=== PATIENT | male | born 1955 | race Caucasian/White ===

== ENCOUNTER 2018-10-23 06:44 | Emergency (ER) | payer SELFPAY ==
--- NOTE | 2018-10-23 07:16 | EDM.PDOC ---
<Frandy Marina - Last Filed: 10/23/18 07:19> ED HPI GENERAL MEDICAL PROBLEM - General Chief Complaint: Abdominal Pain Stated Complaint: abdominal pain Time Seen by Provider: 10/23/18 07:00 Source of Information: Reports: Patient History Limitations: Reports: No Limitations - History of Present Illness INITIAL COMMENTS - FREE TEXT/NARRATIVE: Patient is a 63-year-old gentleman who came into the ER with his complaining of severe left lower quadrant pain patient states that he woke up this morning diaphoretic with significant left lower quadrant pain states that this was about 10 out of 10 patient admits having a bowel movement this morning which was normal and no pain on urination 5 years ago patient had a partial nephrectomy secondary to renal cancer has been doing good. Patient denies fever does admit to left leg pain which she constantly has Onset: Today, Sudden Duration: Hour(s): Location: Reports: Abdomen Quality: Reports: Sharp Severity: Moderate Improves with: Reports: Rest Worsens with: Reports: Movement Associated Symptoms: Reports: Diaphoresis - Related Data Allergies Allergy/AdvReac Type Severity Reaction Status Date / Time morphine Allergy Hypotension Verified 10/23/18 06:47 Home Meds: Home Meds Furosemide [Lasix] 20 mg PO DAILY 10/23/18 [History] Liothyronine [Cytomel] 5 mcg PO DAILY 10/23/18 [History] Lisinopril 20 mg PO DAILY 10/23/18 [History] Rosuvastatin [Crestor] 10 mg PO DAILY 10/23/18 [History] Tamsulosin HCl [Flomax] 0.4 mg PO DAILY #10 capsule 10/23/18 [Rx] Thyroid,Pork [[place] Thyroid] 60 mg PO DAILY 10/23/18 [History] metFORMIN [Glucophage XR] 500 mg PO DAILY 10/23/18 [History] traMADol [Ultram] 50 mg PO Q6H PRN #15 tab 10/23/18 [Rx] Social & Family History - Tobacco Use Smoking Status *Q: Never Smoker Second Hand Smoke Exposure: No - Caffeine Use Caffeine Use: Reports: Soda - Recreational Drug Use Recreational Drug Use: No ED ROS GENERAL - Review of Systems Review Of Systems: See Below Constitutional: Reports: Diaphoresis HEENT: Reports: Rhinitis (Clear), Throat Pain Respiratory: Reports: No Symptoms Cardiovascular: Reports: Chest Pain (States chest pain after work) Endocrine: Reports: No Symptoms GI/Abdominal: Reports: Abdominal Pain : Reports: Flank Pain, Pain Musculoskeletal: Reports: No Symptoms Skin: Reports: No Symptoms Neurological: Reports: No Symptoms Psychiatric: Reports: No Symptoms Hematologic/Lymphatic: Reports: No Symptoms Immunologic: Reports: No Symptoms ED EXAM, GI/ABD - Physical Exam Exam Limited By: No Limitations General Appearance: Alert, WD/WN, Severe Distress, Obese Ears: Normal External Exam, Normal Canal, Hearing Grossly Normal, Normal TMs Nose: Normal Inspection Throat/Mouth: Normal Inspection, Normal Lips, Normal Teeth, Normal Gums, Normal Oropharynx, Normal Voice, No Airway Compromise Head: Atraumatic, Normocephalic Neck: Normal Inspection, Supple, Non-Tender, Full Range of Motion Respiratory/Chest: No Respiratory Distress, Lungs Clear, Normal Breath Sounds, No Accessory Muscle Use, Chest Non-Tender Cardiovascular: Normal Peripheral Pulses, Regular Rate, Rhythm, No Edema, No Gallop, No JVD, No Murmur, No Rub GI/Abdominal Exam: Soft, No Mass, Tender (Male) Exam: Deferred Rectal (Males) Exam: Deferred Back Exam: Normal Inspection, Full Range of Motion, NT Extremities: Normal Inspection, Normal Range of Motion, Non-Tender, Normal Capillary Refill, No Pedal Edema Neurological: Alert, Oriented, CN II-XII Intact, Normal Cognition, Normal Gait, Normal Reflexes, No Motor/Sensory Deficits Psychiatric: Normal Affect, Normal Mood Skin Exam: Warm, Dry, Intact, Normal Color, No Rash Lymphatic: No Adenopathy Course - Vital Signs Last Recorded V/S: Last Vital Signs Temp 36.1 C 10/23/18 06:45 Pulse 54 L 10/23/18 07:28 Resp 20 10/23/18 07:28 BP 144/85 H 10/23/18 07:28 Pulse Ox 98 10/23/18 07:28 - Orders/Labs/Meds Orders: Active Orders 24 hr Category Date Time Status Abdomen Pelvis wo Cont [CT] Stat Exams 10/23/18 07:46 Taken Labs: Laboratory Tests 10/23/18 10/23/18 10/23/18 Range/Units 07:13 07:15 10:15 WBC 6.2 (4.0-10.2) K/uL RBC 4.72 (4.33-5.41) M/uL Hgb 14.4 (13.1-16.8) g/dL Hct 41.9 (39.0-49.0) % MCV 88.8 (84.0-98.0) fL MCH 30.5 (28.2-33.3) pg MCHC 34.4 (31.7-36.0) g/dL RDW 13.9 (11.2-14.1) % Plt Count 222 (150-350) K/uL Neut % (Auto) 68.1 (45.0-80.0) % Lymph % (Auto) 18.3 (10.0-50.0) % [place] % (Auto) 9.5 (2.0-14.0) % Eos % (Auto) 3.6 (0.0-5.0) % Baso % (Auto) 0.5 (0.0-2.0) % Neut # (Auto) 4.22 (1.40-7.00) K/uL Lymph # (Auto) 1.13 (0.50-3.50) K/uL [place] # (Auto) 0.59 (0.00-1.00) K/uL Eos # (Auto) 0.22 (0.00-0.50) K/uL Baso # (Auto) 0.03 (0.00-0.20) K/uL Sodium 142 (136-145) mmol/L Potassium 3.9 (3.5-5.1) mmol/L Chloride 107 (98-107) mmol/L Carbon Dioxide 24.5 (21.0-32.0) mmol/L BUN 11 (7-18) mg/dL Creatinine 1.05 (0.51-1.17) mg/dL Est Cr Clr Drug Dosing 75.32 mL/min Estimated GFR (MDRD) > 60 mL/min Glucose 128 H (74-106) mg/dL Calcium 8.8 (8.5-10.1) mg/dL Total Bilirubin 0.4 (0.2-1.0) mg/dL AST 22 (15-37) U/L ALT 26 (12-78) U/L Alkaline Phosphatase 105 (46-116) IU/L Total Protein 7.1 (6.4-8.2) g/dL Albumin 3.4 (3.4-5.0) g/dL Specimen Type Urinvoid Urine Color Yellow Urine Appearance Clear Urine pH 6.0 (5.0-9.0) Ur Specific [place] 1.015 (1.005-1.030) Urine Protein Negative (NEGATIVE) mg/dL Urine Glucose (UA) Negative (NEGATIVE) mg/dL Urine Ketones Negative (NEGATIVE) mg/dL Urine Occult Blood Moderate H (NEGATIVE) Urine Nitrite Negative (NEGATIVE) Urine Bilirubin Negative (NEGATIVE) Urine Urobilinogen 0.2 (0.2-1.0) E.U./dL Ur Leukocyte Esterase Negative (NEGATIVE) Urine RBC 5-10 H /HPF Urine WBC 0-5 /HPF Ur Epithelial Cells Not seen /LPF Urine Bacteria Not seen (NONE TO FEW) /HPF Meds: Medications Discontinued Medications Generic Name Dose Route Start Last Admin Trade Name Freq PRN Reason Stop Dose Admin Sodium Chloride 1,000 mls @ 999 mls/hr 10/23/18 09:09 10/23/18 09:26 Normal Saline IV 10/23/18 10:09 999 mls/hr .BOLUS ONE Administration Iopamidol 100 ml 10/23/18 07:37 Isovue-300 (61%) IVPUSH 10/23/18 07:38 ONETIME ONE Ketorolac Tromethamine 30 mg 10/23/18 09:10 10/23/18 10:51 Toradol IVPUSH 10/23/18 09:11 Not Given ONETIME ONE Tamsulosin HCl 0.4 mg 10/23/18 09:09 10/23/18 09:26 Flomax PO 10/23/18 09:10 0.4 mg ONETIME ONE Administration Tramadol HCl 100 mg 10/23/18 09:21 10/23/18 09:26 Ultram PO 10/23/18 09:22 100 mg ONETIME ONE Administration Departure - Departure Disposition: Home, Self-Care 01 Clinical Impression: Kidney stone on left side - Discharge Information Prescriptions: Tamsulosin HCl [Flomax] 0.4 mg PO DAILY #10 capsule traMADol [Ultram] 50 mg PO Q6H PRN #15 tab PRN Reason: Pain Instructions: Kidney Stones, [id number] Referrals: Jacklyn Wellington, [employer] [Primary Care Provider] - Forms: ED Department Discharge Additional Instructions: Strain urine and try to catch the stone. Bring stone to your doctor and it can be sent in for testing to see what kind of stones you are forming. Follow up with clinic for recheck if no stone is noted within 3 days. Follow up in ER if you have sudden worsening problems. <Lesly Vera - Last Filed: 10/23/18 14:36> ED EXAM, GI/ABD - Physical Exam Exam: See Below Course - Radiology Interpretation CT Results Date: 10/23/18 CT Results Time: 09:06 (5mm stone near UVJ noted by /Radiology) - Re-Assessments/Exams Free Text/Narrative Re-Assessment/Exam: 10/23/18 09:11 5mm stone identified near left UVJ by Radiology. IV bolus of NS, Tramadol, Flomax ordered. Patient allergic to MS, reports it causes hypertension. He has tolerated other pain meds such as T#3 in past without issue. Plan will be to discharge patient after bolus Rx for Flomax and Tramadol will be given to patient. To follow up as needed. Departure - Departure Time of Disposition: 10:45 Condition: Good - Discharge Information *PRESCRIPTION DRUG MONITORING PROGRAM REVIEWED*: Not Applicable *COPY OF PRESCRIPTION DRUG MONITORING REPORT IN PATIENT DANK: Not Applicable
[2018-10-23] MEDS ORDERED: Iopamidol 612 MG/ML 100 ML Bottle IVPUSH ONE (07:37)
[2018-10-23 07:39] LABS: CHLORIDE,CL 107 mmol/L (98-107); SODIUM,NA 142 mmol/L (136-145)
[2018-10-23] MEDS ORDERED: Sodium Chloride 0.9% 1,000 ML IV ONE (09:09)
[2018-10-23] MEDS ORDERED: Tamsulosin 0.4 MG Cap.ER PO ONE (09:09)
[2018-10-23] MEDS ORDERED: Ketorolac 30 MG/ML SDV IVPUSH ONE (09:10)
[2018-10-23] MEDS ORDERED: traMADol 50 MG Tab PO ONE (09:21)
== END 2018-10-23 10:45 | disposition home or self-care (01) ==
LOC: LL.ED 06:44
DX: N20.2 Calculus of kidney with calculus of ureter (principal); Z88.5 Allergy status to narcotic agent; Z79.899 Other long term (current) drug therapy
CPT/HCPCS: 36415; 74176; 80053; 81001; 85025; 96360; 99284; A9270; J7030